=== PATIENT | female | born 1945 | race African-American/Black ===

== ENCOUNTER → 2017-07-14 | Outpatient (CLI) | payer MEDICARE, MEDICAID ==
[~2017-07-14] MED LIST: BARIUM SULFATE 176 GM SUSP.RECON ONE; EZ-HD SUSPENSION(BARIUM SULFATE 340GM) PO ONE
== END | disposition home or self-care (01) ==
LOC: RAD 10:16
DX: R47.01 Aphasia (principal)
CPT/HCPCS: 74220

== ENCOUNTER 2017-08-19 14:48 | Inpatient (IN) | payer MEDICARE, MEDICAID ==
[~2017-08-19] VITALS: Ht 149.9 cm; Wt 47.2 kg
[2017-08-19] MEDS ORDERED: SODIUM CHLORIDE 0.9% 1,000 ML IV ONE (15:09)
[2017-08-19 16:47] LABS: BASOPHILS % 0.9 % (0.0-2.0); EOSINOPHILS % 1.3 % (0.0-5.0); HEMATOCRIT. 37.7 % (36.0-48.0); HEMOGLOBIN. 12.5 g/dL (12.0-16.0); LYMPHOCYTES % 26.3 % (20.0-50.0); MEAN CORPUSCULAR HEMOGLOBIN 29.4 pg (28.0-32.0); MEAN CORPUSCULAR VOLUME 88.9 fL (81.0-99.0); MEAN PLATELET VOLUME 12.9 fl (7.4-10.4); NEUTROPHILS % 63.5 % (40.0-76.0); PLATELET 128 x1000/uL (130-400); RED BLOOD CELL COUNT 4.24 mill/uL (4.2-5.4); RED CELL DISTRIBUTION WIDTH 12.8 % (11.6-14.6)
[2017-08-19 16:49] LABS: CHLORIDE 109 mEq/L (98-107)
[2017-08-19 16:51] LABS: INR 1.1; PARTIAL THROMBOPLASTIN TIME 28.3 sec (23.4-31.0); PROTHROMBIN TIME 11.2 sec (9.4-11.6)
[2017-08-19 17:00] LABS: CREATINE KINASE MB FRACTION 2.5 ng/mL (0.5-3.6)
[2017-08-19] MEDS ORDERED: ASPIRIN 325MG EC TABLET PO ONE (17:15)
[2017-08-19] MEDS ORDERED: ONDANSETRON HCL 4MG/2ML VIAL IV PRN (20:30)
[2017-08-19] MEDS ORDERED: DOCUSATE SODIUM 100MG CAPSULE PO PRN (20:30)
[2017-08-19] MEDS ORDERED: MORPHINE SULFATE 4 MG/ML CPJ (NOT FOR IM USE) IV PRN (20:30)
[2017-08-19] MEDS ORDERED: ACETAMINOPHEN 325MG TABLET PO PRN (20:30)
[2017-08-19 21:00] VITALS: BP 152/69
[2017-08-19 21:06] LABS: CLARITY URINE CLEAR (CLEAR); COLOR URINE YELLOW (YELLOW); KETONES URINE NEGATIVE (NEGATIVE); LEUKOCYTE ESTERASE URINE NEGATIVE (NEGATIVE); NITRITE URINE NEGATIVE (NEGATIVE); OCCULT BLOOD URINE NEGATIVE (NEGATIVE); PROTEIN URINE NEGATIVE (NEGATIVE); UROBILINOGEN URINE 0.2 E.U./dL (0.2-1.0)
[2017-08-19 21:21] LABS: *AMPHETAMINES SCREEN URINE NEGATIVE (NEGATIVE); *BARBITURATES SCREEN URINE NEGATIVE (NEGATIVE); *BENZODIAZEPINES SCREEN URINE NEGATIVE (NEGATIVE); *COCAINE SCREEN URINE NEGATIVE (NEGATIVE); CANNABINOID URINE SCREEN NEGATIVE (NEGATIVE); METHADONE URINE SCREEN NEGATIVE (NEGATIVE); OPIATES URINE SCREEN NEGATIVE (NEGATIVE); PHENCYCLIDINE URINE SCREEN NEGATIVE (NEGATIVE)
[2017-08-19 21:54] VITALS: BP 152/69
[2017-08-19] MEDS: SODIUM CHLORIDE 0.45% 1,000 ML IV SCH (23:26)
[2017-08-20] VITALS: BP 133/64
[2017-08-20 04:00] VITALS: BP 133/70
[2017-08-20 07:02] LABS: CHLORIDE 108 mEq/L (98-107)
[2017-08-20 07:05] LABS: BASOPHILS % 0.5 % (0.0-2.0); EOSINOPHILS % 1.2 % (0.0-5.0); HEMATOCRIT. 41.5 % (36.0-48.0); HEMOGLOBIN. 13.7 g/dL (12.0-16.0); LYMPHOCYTES % 26.8 % (20.0-50.0); MEAN CORPUSCULAR HEMOGLOBIN 29.4 pg (28.0-32.0); MEAN CORPUSCULAR VOLUME 88.7 fL (81.0-99.0); MEAN PLATELET VOLUME 13.2 fl (7.4-10.4); MONOCYTES % 8.9 % (2.0-8.0); NEUTROPHILS % 62.6 % (40.0-76.0); PLATELET 131 x1000/uL (130-400); RED BLOOD CELL COUNT 4.68 mill/uL (4.2-5.4); RED CELL DISTRIBUTION WIDTH 12.8 % (11.6-14.6)
[2017-08-20 07:20] LABS: HDL CHOLESTEROL 63 mg/dL (40-59); LDL CHOLESTEROL 69 mg/dL (5-100)
[2017-08-20 08:00] VITALS: BP 111/48
[2017-08-20] MEDS: AMLODIPINE 10MG TABLET PO SCH (09:00)
[2017-08-20] MEDS: ASPIRIN 81MG EC TABLET PO SCH (09:27)
[2017-08-20] MEDS: ENOXAPARIN 30MG/0.3ML SYR SUBCUT SCH (09:31)
[2017-08-20 11:12] LABS: PLATELET ESTIMATE NORMAL
[2017-08-20] MEDS ORDERED: MECLIZINE 25MG TABLET PO PRN (11:15)
[2017-08-20 12:00] VITALS: BP 110/55
[2017-08-20 16:00] VITALS: BP 129/65
[2017-08-20 20:00] VITALS: BP 154/69
[2017-08-20] MEDS: SODIUM CHLORIDE 0.45% 1,000 ML IV SCH (21:47)
[2017-08-21] VITALS (7 sets, daily range): BP systolic 115–132; BP diastolic 50–69
[2017-08-21 06:02] LABS: CHLORIDE 109 mEq/L (98-107)
[2017-08-21 06:32] LABS: BASOPHILS % 0.6 % (0.0-2.0); EOSINOPHILS % 2.1 % (0.0-5.0); HEMATOCRIT. 39.9 % (36.0-48.0); HEMOGLOBIN. 13.2 g/dL (12.0-16.0); LYMPHOCYTES % 20.7 % (20.0-50.0); MEAN CORPUSCULAR HEMOGLOBIN 29.6 pg (28.0-32.0); MEAN CORPUSCULAR VOLUME 89.3 fL (81.0-99.0); MEAN PLATELET VOLUME 13.2 fl (7.4-10.4); MONOCYTES % 9.1 % (2.0-8.0); NEUTROPHILS % 67.5 % (40.0-76.0); PLATELET 125 x1000/uL (130-400); RED BLOOD CELL COUNT 4.47 mill/uL (4.2-5.4); RED CELL DISTRIBUTION WIDTH 12.7 % (11.6-14.6)
[2017-08-21] MEDS: SODIUM CHLORIDE 0.45% 1,000 ML IV SCH (09:11)
[2017-08-21] MEDS: AMLODIPINE 10MG TABLET PO SCH (09:13)
[2017-08-21] MEDS: ENOXAPARIN 30MG/0.3ML SYR SUBCUT SCH (09:14)
[2017-08-21] MEDS: ASPIRIN 81MG EC TABLET PO SCH (09:14)
[2017-08-22] VITALS: BP 131/61
[2017-08-22 04:00] VITALS: BP 130/70
[2017-08-22] MEDS: SODIUM CHLORIDE 0.45% 1,000 ML IV SCH (05:16)
[2017-08-22 05:36] LABS: BASOPHILS % 0.4 % (0.0-2.0); EOSINOPHILS % 2.1 % (0.0-5.0); HEMATOCRIT. 40.9 % (36.0-48.0); HEMOGLOBIN. 13.4 g/dL (12.0-16.0); MEAN CORPUSCULAR HEMOGLOBIN 29.4 pg (28.0-32.0); MEAN CORPUSCULAR VOLUME 89.8 fL (81.0-99.0); MONOCYTES % 7.7 % (2.0-8.0); NEUTROPHILS % 58.8 % (40.0-76.0); RED BLOOD CELL COUNT 4.55 mill/uL (4.2-5.4); RED CELL DISTRIBUTION WIDTH 12.6 % (11.6-14.6)
[2017-08-22 05:56] LABS: CHLORIDE 109 mEq/L (98-107)
[2017-08-22 08:00] VITALS: BP 140/63
[2017-08-22] MEDS: AMLODIPINE 10MG TABLET PO SCH (08:42)
[2017-08-22] MEDS: ASPIRIN 81MG EC TABLET PO SCH (08:42)
[2017-08-22] MEDS: ENOXAPARIN 30MG/0.3ML SYR SUBCUT SCH (08:42)
[2017-08-22 10:13] LABS: MEAN PLATELET VOLUME 12.8 fl (7.4-10.4); PLATELET 129 x1000/uL (130-400)
[2017-08-22 10:34] VITALS: BP 136/76
[2017-08-22 12:00] VITALS: BP 141/62
== END 2017-08-22 15:15 | disposition home health service (06) | DRG 111 ==
LOC: ENRESERV 18:32 → ER 19:19 → SUPCPDRO 20:16 → 5WST 22:27
PROVIDERS: ADMIT Hospitalist; ATTEND Hospitalist
DX: R42 Dizziness and giddiness (principal); I69.328 Other speech and language deficits following cerebral infarction; I10 Essential (primary) hypertension
CPT/HCPCS: 36415; 70450; 70551; 71045; 80048; 80053; 80061; 80305; 81003; 82553; 82962; 84484; 85025; 85610; 85730; 93005; 93880; 96360; 96361; 97162; 97165; 99285; J1650; J7030

== ENCOUNTER 2019-03-24 13:36 | Emergency (ER) | payer MEDICARE, MEDICAID ==
[~2019-03-24] VITALS: Ht 157.5 cm; Wt 59.0 kg
[2019-03-24] MEDS ORDERED: SODIUM CHLORIDE 0.9% 1,000 ML IV ONE (13:49)
[2019-03-24] MEDS ORDERED: IBUPROFEN 600MG TABLET PO ONE (14:15)
[2019-03-24 14:23] LABS: BASOPHILS % 0.5 % (0.0-2.0); HEMATOCRIT. 38.2 % (36.0-48.0); HEMOGLOBIN. 12.3 g/dL (12.0-16.0); LYMPHOCYTES % 30.2 % (20.0-50.0); MEAN CORPUSCULAR HEMOGLOBIN 29.7 pg (28.0-32.0); MONOCYTES % 8.7 % (2.0-8.0); NEUTROPHILS % 58.6 % (40.0-76.0); RED BLOOD CELL COUNT 4.16 mill/uL (4.2-5.4); RED CELL DISTRIBUTION WIDTH 12.9 % (11.6-14.6)
[2019-03-24 14:32] LABS: CHLORIDE 110 mEq/L (98-107)
[2019-03-24 14:46] LABS: PLATELET 135 x1000/uL (130-400)
[2019-03-24 16:10] LABS: CLARITY URINE TURBID (CLEAR); COLOR URINE YELLOW (YELLOW); KETONES URINE NEGATIVE (NEGATIVE); LEUKOCYTE ESTERASE URINE NEGATIVE (NEGATIVE); NITRITE URINE NEGATIVE (NEGATIVE); OCCULT BLOOD URINE NEGATIVE (NEGATIVE); PROTEIN URINE NEGATIVE (NEGATIVE); SPECIFIC GRAVITY URINE 1.019 (1.005-1.030)
[2019-03-24] MEDS ORDERED: AMLODIPINE 5MG TABLET PO ONE (18:15)
[2019-03-24 19:05] VITALS: BP 157/60
== END 2019-03-24 19:14 | disposition home or self-care (01) ==
LOC: ER 13:56
DX: R53.1 Weakness (principal); R42 Dizziness and giddiness; I10 Essential (primary) hypertension
CPT/HCPCS: 36415; 71045; 80053; 81003; 85025; 93005; 96360; 99284; J7030

== ENCOUNTER 2019-09-29 12:05 | Emergency (ER) | payer MEDICARE, MEDICAID ==
[~2019-09-29] VITALS: Ht 157.5 cm; Wt 45.0 kg
[2019-09-29 13:12] LABS: HEMOGLOBIN. 10.3 g/dL (12.0-16.0); MEAN CORPUSCULAR HEMOGLOBIN 29.7 pg (28.0-32.0); MEAN CORPUSCULAR VOLUME 92.6 fL (81.0-99.0); MEAN PLATELET VOLUME 12.7 fl (7.4-10.4); PLATELET 163 x1000/uL (130-400); RED BLOOD CELL COUNT 3.46 mill/uL (4.2-5.4); RED CELL DISTRIBUTION WIDTH 15.2 % (11.6-14.6)
[2019-09-29 13:21] LABS: CHLORIDE 105 mEq/L (98-107)
[2019-09-29 13:41] LABS: PLATELET ESTIMATE NORMAL
[2019-09-29 14:39] LABS: CLARITY URINE CLOUDY (CLEAR); COLOR URINE YELLOW (YELLOW); KETONES URINE NEGATIVE (NEGATIVE); LEUKOCYTE ESTERASE URINE 1+ (NEGATIVE); NITRITE URINE NEGATIVE (NEGATIVE); OCCULT BLOOD URINE NEGATIVE (NEGATIVE); PROTEIN URINE NEGATIVE (NEGATIVE); SPECIFIC GRAVITY URINE 1.016 (1.005-1.030); UROBILINOGEN URINE 0.2 E.U./dL (0.2-1.0)
[2019-09-29] MEDS ORDERED: CEFTRIAXONE 1 G PREMIX 50 ML IV SCH (15:45)
[2019-09-29 19:30] VITALS: BP 144/62
== END 2019-09-29 20:35 | disposition home or self-care (01) ==
LOC: ER 12:05
DX: R19.7 Diarrhea, unspecified (principal); N39.0 Urinary tract infection, site not specified; I10 Essential (primary) hypertension; Z86.73 Personal history of transient ischemic attack (TIA), and cerebral infarction without residual deficits
CPT/HCPCS: 36415; 80053; 81003; 83690; 85025; 93005; 96365; 99285; C9803; J0696; U0003; 99284

== ENCOUNTER 2020-07-29 14:59 | Inpatient (IN) | payer MEDICARE, MEDICAID ==
[~2020-07-29] VITALS: Ht 152.4 cm; Wt 48.1 kg
[2020-07-29 15:55] LABS: BASOPHILS % 0.6 % (0.0-2.0); EOSINOPHILS % 1.8 % (0.0-5.0); HEMATOCRIT. 38.2 % (36.0-48.0); HEMOGLOBIN. 12.9 g/dL (12.0-16.0); LYMPHOCYTES % 31.1 % (20.0-50.0); MEAN CORPUSCULAR HEMOGLOBIN 30.6 pg (28.0-32.0); MEAN CORPUSCULAR VOLUME 90.2 fL (81.0-99.0); MEAN PLATELET VOLUME 13.3 fl (7.4-10.4); MONOCYTES % 6.9 % (2.0-8.0); NEUTROPHILS % 59.6 % (40.0-76.0); PLATELET 133 x1000/uL (130-400); RED BLOOD CELL COUNT 4.23 mill/uL (4.2-5.4); RED CELL DISTRIBUTION WIDTH 13.3 % (11.6-14.6)
[2020-07-29 15:57] LABS: CHLORIDE 110 mEq/L (98-107)
[2020-07-29 16:01] LABS: PROTHROMBIN TIME 10.4 sec (9.6-11.0)
[2020-07-29 16:04] LABS: LDL CHOLESTEROL 81 mg/dL (5-100)
[2020-07-29] MEDS ORDERED: LABETALOL HCL 20MG/4ML CARPUJECT IV ONE (16:15)
[2020-07-29] MEDS ORDERED: IOHEXOL-350 100 ML BOTTLE ONE (17:04)
[2020-07-29 21:58] LABS: CLARITY URINE CLEAR (CLEAR); COLOR URINE YELLOW (YELLOW); KETONES URINE NEGATIVE (NEGATIVE); LEUKOCYTE ESTERASE URINE 3+ (NEGATIVE); NITRITE URINE NEGATIVE (NEGATIVE); OCCULT BLOOD URINE NEGATIVE (NEGATIVE); PROTEIN URINE NEGATIVE (NEGATIVE); SPECIFIC GRAVITY URINE 1.024 (1.005-1.030); UROBILINOGEN URINE 0.2 E.U./dL (0.2-1.0)
[2020-07-29] MEDS ORDERED: LABETALOL 5MG/ML SYR 20 MG/4 ML SYRINGE IV NR (22:15)
[2020-07-29] MEDS: CLONIDINE 0.2MG TABLET PO PRN (22:52)
[2020-07-30] VITALS (7 sets, daily range): BP systolic 116–168; BP diastolic 50–85
[2020-07-30] MEDS ORDERED: CEFTRIAXONE 1 G PREMIX 50 ML IV SCH (01:30)
[2020-07-30] MEDS ORDERED: HYDR12.54 PO (01:41)
[2020-07-30] MEDS ORDERED: ATEN-42 PO (01:41)
[2020-07-30] MEDS ORDERED: LOSA100T32 PO (01:41)
[2020-07-30] MEDS ORDERED: ASPI-1406 PO (01:41)
[2020-07-30] MEDS ORDERED: CRES10 PO (01:41)
[2020-07-30] MEDS: CEFTRIAXONE 1,000 MG in DEXTROSE 5% WATER 50 ML IV SCH (03:15)
[2020-07-30] MEDS ORDERED: *PATIENT'S OWN MEDICATION STORAGE XX SCH (05:15)
[2020-07-30 06:36] LABS: CHLORIDE 110 mEq/L (98-107)
[2020-07-30 06:37] LABS: BASOPHILS % 0.5 % (0.0-2.0); EOSINOPHILS % 2.2 % (0.0-5.0); HEMATOCRIT. 33.9 % (36.0-48.0); HEMOGLOBIN. 11.4 g/dL (12.0-16.0); LYMPHOCYTES % 28.1 % (20.0-50.0); MEAN CORPUSCULAR HEMOGLOBIN 30.4 pg (28.0-32.0); MEAN CORPUSCULAR VOLUME 89.9 fL (81.0-99.0); MEAN PLATELET VOLUME 13.6 fl (7.4-10.4); MONOCYTES % 7.5 % (2.0-8.0); NEUTROPHILS % 61.7 % (40.0-76.0); PLATELET 115 x1000/uL (130-400); RED BLOOD CELL COUNT 3.77 mill/uL (4.2-5.4)
[2020-07-30 06:41] LABS: LDL CHOLESTEROL 80 mg/dL (5-100)
[2020-07-30 06:42] LABS: HDL CHOLESTEROL 54 mg/dL (40-59)
[2020-07-30] MEDS: LOSARTAN POTASSIUM 100 MG TABLET PO SCH (08:40)
[2020-07-30] MEDS: ASPIRIN 81MG EC TABLET PO SCH (08:40)
[2020-07-30] MEDS: ATENOLOL 25MG TABLET PO SCH (08:40)
[2020-07-30] MEDS: ENOXAPARIN 30MG/0.3ML SYR SUBCUT SCH (08:41)
[2020-07-30] MEDS: ATORVASTATIN CALCIUM 40MG TABLET PO SCH (20:36)
[2020-07-31] VITALS (7 sets, daily range): BP systolic 135–165; BP diastolic 65–88
[2020-07-31] MEDS: CLONIDINE 0.2MG TABLET PO PRN (04:30)
[2020-07-31] MEDS: CEFTRIAXONE 1,000 MG in DEXTROSE 5% WATER 50 ML IV SCH (09:03)
[2020-07-31] MEDS: ASPIRIN 81MG EC TABLET PO SCH (09:03)
[2020-07-31] MEDS: LOSARTAN POTASSIUM 100 MG TABLET PO SCH (09:03)
[2020-07-31] MEDS: ATENOLOL 25MG TABLET PO SCH (09:04)
[2020-07-31] MEDS: ENOXAPARIN 30MG/0.3ML SYR SUBCUT SCH (09:04)
[2020-07-31] MEDS ORDERED: LEVO250T58 MT (13:42)
[2020-07-31] MEDS ORDERED: HYDROCODONE/ACETAMINOPHEN 5/325MG TABLET PO PRN (13:45)
[2020-07-31] MEDS ORDERED: HYDRALAZINE 20MG/ML VIAL IV PRN (13:45)
[2020-07-31] MEDS ORDERED: ACETAMINOPHEN 325MG TABLET PO PRN (13:45)
[2020-07-31] MEDS ORDERED: ONDANSETRON HCL 4MG/2ML INJ IV PRN (13:45)
[2020-07-31] MEDS ORDERED: LACTULOSE 20G/30ML UDC PO PRN (13:45)
[2020-07-31] MEDS ORDERED: ACETAMINOPHEN 650MG SUPP PR PRN (13:45)
[2020-07-31] MEDS ORDERED: LORAZEPAM 2MG/ML CPJ IV PRN (13:45)
[2020-07-31] MEDS ORDERED: FAMOTIDINE 20MG TABLET PO SCH (21:00)
[2020-07-31] MEDS: ATORVASTATIN CALCIUM 40MG TABLET PO SCH (21:38)
[2020-08-01] VITALS (9 sets, daily range): BP systolic 131–169; BP diastolic 63–103
[2020-08-01 06:23] LABS: HEMATOCRIT 37.5 % (36.0-48.0); HEMOGLOBIN 12.5 g/dL (12.0-16.0); MEAN CORPUSCULAR HEMOGLOBIN 30.1 pg (28.0-32.0); MEAN CORPUSCULAR VOLUME 90.5 fL (81.0-99.0); PLATELET 116 x1000/uL (130-400); RED BLOOD CELL COUNT 4.14 mill/uL (4.2-5.4)
[2020-08-01 06:31] LABS: CHLORIDE 110 mEq/L (98-107)
[2020-08-01] MEDS: LOSARTAN POTASSIUM 100 MG TABLET PO SCH (09:30)
[2020-08-01] MEDS: ATENOLOL 25MG TABLET PO SCH (09:30)
[2020-08-01] MEDS: ASPIRIN 81MG EC TABLET PO SCH (09:30)
[2020-08-01] MEDS: ENOXAPARIN 30MG/0.3ML SYR SUBCUT SCH (09:30)
[2020-08-01] MEDS: CEFTRIAXONE 1,000 MG in DEXTROSE 5% WATER 50 ML IV SCH (09:41)
[2020-08-01] MEDS ORDERED: LEVOFLOXACIN 250MG TABLET PO SCH (20:00)
== END 2020-08-01 21:20 | DRG 199 ==
LOC: ER 14:59 → 8WST 18:36 → EDBEDREQ 18:41 → EDBEDREQTM 18:41 → ENRESERV 20:32 → 8WST 07-30 11:51
PROVIDERS: ADMIT Internal Medicine; ATTEND Internal Medicine
DX: I16.1 Hypertensive emergency (principal); E87.8 Other disorders of electrolyte and fluid balance, not elsewhere classified; N39.0 Urinary tract infection, site not specified; E86.0 Dehydration; R74.01 Elevation of levels of liver transaminase levels; Z20.822 Contact with and (suspected) exposure to COVID-19; I10 Essential (primary) hypertension; Z86.73 Personal history of transient ischemic attack (TIA), and cerebral infarction without residual deficits; Z79.899 Other long term (current) drug therapy; G80.9 Cerebral palsy, unspecified
CPT/HCPCS: 36415; 70496; 70498; 71045; 80048; 80053; 80061; 81003; 82962; 83605; 83721; 84484; 85025; 85027; 87426; 92610; 93005; 93970; 97162; 97166; 97530; 97535; 99291; J0696; J1650; J3490; J7060; Q9967